=== PATIENT | female | born 2000 | race American Indian/Alaskan Native ===

== ENCOUNTER 2021-05-28 00:29 | Emergency (ER) | payer OTHER ==
[2021-05-28 00:39] VITALS: BP 130/80
[2021-05-28] MEDS ORDERED: predniSONE 20 MG TAB PO ONE (02:50)
[2021-05-28] MEDS ORDERED: IBUPROFEN 800 MG TAB PO STA (02:50)
--- NOTE | 2021-05-28 02:56 | Emergency Department Report ---
ED General Adult HPI - General Chief complaint: Sore Throat Stated complaint: SORE THROAT Time Seen by Provider: 05/28/21 02:09 Source: patient Mode of arrival: Ambulatory Limitations: No Limitations - History of Present Illness Initial comments: 21-year-old -[place] female patient presents with complaints of sore throat for the past few days. She states her symptoms began with a cough 1 week ago with some mild mucus production. She states her cough has resolved and now she has a sore throat. She denies any fever/chills/sweats or difficulty opening her jaw. Pain worsens with swallowing per patient. Patient also reports that members or her family in her household had strep throat 1 week ago. -: Sudden - Related Data Previous Rx's Medication Instructions Recorded Last Taken Type Amoxicillin [Trimox CAP] 500 mg PO BID 10 Days #20 capsule 05/28/21 Unknown Rx Ibuprofen [Motrin 800 MG tab] 800 mg PO Q8HR PRN #20 tablet 05/28/21 Unknown Rx predniSONE [Deltasone] 20 mg PO BID 1 Days #2 tab 05/28/21 Unknown Rx Allergies Allergy/AdvReac Type Severity Reaction Status Date / Time No Known Allergies Allergy Unverified 05/28/21 00:35 ED Review of Systems ROS: Stated complaint: SORE THROAT Other details as noted in HPI Constitutional: denies: chills, diaphoresis, fever, malaise Respiratory: no symptoms reported. denies: shortness of breath Cardiovascular: denies: chest pain Skin: denies: rash Neurological: denies: headache ED Past Medical Hx - Past Medical History Previous Medical History?: No - Surgical History Past Surgical History?: No - Social History Smoking Status: Current Every Day Smoker Substance Use Type: Marijuana - Medications Home Medications: Home Medications Medication Instructions Recorded Confirmed Last Taken Type Amoxicillin [Trimox CAP] 500 mg PO BID 10 Days #20 capsule 05/28/21 Unknown Rx Ibuprofen [Motrin 800 MG tab] 800 mg PO Q8HR PRN #20 tablet 05/28/21 Unknown Rx predniSONE [Deltasone] 20 mg PO BID 1 Days #2 tab 05/28/21 Unknown Rx ED Physical Exam - General Limitations: No Limitations General appearance: alert, in no apparent distress, obese - Head Head exam: Present: atraumatic, normocephalic - Eye Eye exam: Present: normal appearance - Expanded ENT Exam Expanded Mouth exam: Absent: drooling, trismus, muffled voice Throat exam: Positive: tonsillar erythema, tonsillomegaly, other (Uvula is midline). Negative: R peritonsillar mass, L peritonsillar mass - Neck Neck exam: Present: lymphadenopathy (Mild anterior ) - Respiratory Respiratory exam: Present: normal lung sounds bilaterally. Absent: respiratory distress - Cardiovascular Cardiovascular Exam: Present: regular rate - Neurological Exam Neurological exam: Present: alert, oriented X3, normal gait - Psychiatric Psychiatric exam: Present: normal affect, normal mood - Skin Skin exam: Present: warm, dry, intact, normal color. Absent: rash, cyanosis, diaphoretic, petechiae, pallor ED Course Vital Signs 05/28/21 00:35 Temperature 99.4 F Pulse Rate 84 Respiratory 18 Rate Blood Pressure 130/80 O2 Sat by Pulse 98 Oximetry ED Medical Decision Making - Medical Decision Making 21-year-old -[place] female patient presents with complaints of sore throat for the past few days. She states her symptoms began with a cough 1 week ago with some mild mucus production. She states her cough has resolved and now she has a sore throat. She denies any fever/chills/sweats or difficulty opening her jaw. Pain worsens with swallowing per patient. Patient also reports that members or her family in her household had strep throat 1 week ago. We will treat with Amoxil for strep pharyngitis. Recommend follow-up with PCP in 3 to 5 days. Patient's vitals are within normal limits, she is nontoxic- appearing, she is stable for discharge home. Discussed in detail signs and symptoms that should prompt immediate return to the emergency department in detail with patient who verbalizes understanding. Critical care attestation.: If time is entered above; I have spent that time in minutes in the direct care of this critically ill patient, excluding procedure time. ED Disposition Clinical Impression: Acute bacterial pharyngitis Disposition: TO HOME OR SELFCARE Is pt being admited?: No Condition: Stable Instructions: Strep Throat, Adult Prescriptions: predniSONE [Deltasone] 20 mg PO BID 1 Days #2 tab Ibuprofen [Motrin 800 MG tab] 800 mg PO Q8HR PRN #20 tablet PRN Reason: pain Amoxicillin [Trimox CAP] 500 mg PO BID 10 Days #20 capsule Referrals: CHRISTINA WELLER, HVAC SERVICE TECHNICIAN-C [Primary Care Provider] - 3-5 Days
== END 2021-05-28 03:25 | disposition home or self-care (01) ==
LOC: ED 00:29
DX: J02.8 Acute pharyngitis due to other specified organisms (principal); B96.89 Other specified bacterial agents as the cause of diseases classified elsewhere; F17.200 Nicotine dependence, unspecified, uncomplicated; F12.90 Cannabis use, unspecified, uncomplicated; Z79.899 Other long term (current) drug therapy
CPT/HCPCS: 99282; J7512